=== PATIENT | male | born 1960 | race Caucasian/White ===

== ENCOUNTER 2016-11-13 10:40 | Outpatient (CLI) | payer BC ==
[2016-11-13 12:06] LABS: #Eosinphils 0.4 thou/uL (0.0-0.7); #Lymphocytes 1.1 thou/uL (1.20-3.40); #Monocytes 0.5 thou/uL (0.11-0.59); #Neutrophils 2.3 thou/uL (1.40-6.50); %Basophils 0.8 % (0.0-1.0); %Eosinophils 9.1 % (0.0-10.0); %Lymphocytes 26.2 % (21.0-51.0); %Monocytes 10.9 % (0.0-10.0); Hemoglobin 16.1 g/dL (14.0-18.0); Mean Corpuscular HGB CONC 32.9 g/dL (32.0-36.0); Mean Corpuscular Volume 94.1 fl (80.0-94.0); Mean Platelet Volume 6.7 fL (7.4-10.4); Platelet Count 162 thou/uL (130-400); RBC Distribution Width 12.6 % (11.5-14.5); Red Blood Cell (RBC) Count 5.19 mill/uL (4.70-6.10); White Blood Cell (WBC) Count 4.4 thou/uL (4.8-10.8)
[2016-11-13 12:28] LABS: ALT (SGPT) 15 U/L (0-55); AST (SGOT) 10 U/L (5-34); Albumin 3.8 g/dL (3.5-5.0); Alkaline Phosphatase 86 U/L (40-150); Anion Gap 11 mmol/L (10-20); BUN (Urea Nitrogen) 13 mg/dL (8.4-25.7); Bilirubin, Total 0.6 mg/dL (0.2-1.2); Calc. Creatinine Clearance 0 mL/min (70-130); Calcium 8.6 mg/dL (7.8-10.44); Carbon Dioxide 28 mmol/L (22-29); Cardiac Risk 5.1 (Less than 4.5); Chloride 107 mmol/L (98-107); Cholesterol 152 mg/dL (< 200 Desired); Estimated GFR-MDRD Greater than 90; Globulin 2.5 g/dL (2.4-3.5); Glucose 107 mg/dL (70-105); HDL Cholesterol 30 mg/dL (>60 Neg Risk); LDL Cholesterol, Calculated 108 mg/dL; Potassium 4.5 mmol/L (3.5-5.1); Protein, Total 6.3 g/dL (6.0-8.3); Sodium 141 mmol/L (136-145); Triglycerides 70 mg/dL (Less than 150)
[2016-11-13 12:35] LABS: Hemoglobin A1c 6.1 % (4.0-6.0)
== END 2016-11-13 10:41 | disposition home or self-care (01) ==
LOC: HPCALD 10:40
PROVIDERS: ATTEND Family Medicine
DX: Z12.5 Encounter for screening for malignant neoplasm of prostate (principal); E11.9 Type 2 diabetes mellitus without complications; I10 Essential (primary) hypertension; E78.5 Hyperlipidemia, unspecified
CPT/HCPCS: 36415; 80053; 80061; 83036; 85025; G0103

== ENCOUNTER 2018-08-21 16:32 | Outpatient (CLI) | payer BC ==
--- NOTE | 2018-08-21 21:38 | RAD ---
PORTABLE CHEST 08/21/18 Comparison is made with a 03/13/08 study. The heart is normal in size. There is no congestion or effusion. There is some streaking in the vicin ity of the lingula of the left upper lobe adjacent to the left heart border. I cannot rule out a smal l infiltrate here. The right lung is clear. IMPRESSION: Questionable lingular infiltrate. Code T POS: HOME
== END 2018-08-21 16:33 | disposition home or self-care (01) ==
LOC: BURRAD 16:32
PROVIDERS: ATTEND Physician Assistant
DX: R05 Cough (principal); R06.2 Wheezing
CPT/HCPCS: 71046

== ENCOUNTER 2022-10-15 08:44 | Emergency (ER) | payer BC ==
[2022-10-15] MEDS ORDERED: Amoxicillin/Potassium Clav 875 MG TAB ONE (09:31)
[2022-10-15] MEDS ORDERED: Penicillin V Potassium 250 MG TAB ONE (09:32)
== END 2022-10-15 09:34 | disposition home or self-care (01) ==
LOC: BURERS 08:44
DX: K02.9 Dental caries, unspecified (principal); K04.7 Periapical abscess without sinus; I10 Essential (primary) hypertension; E11.9 Type 2 diabetes mellitus without complications; E78.5 Hyperlipidemia, unspecified
CPT/HCPCS: 99282